=== PATIENT | female | born 1960 ===

== ENCOUNTER 2021-01-14 08:28 | Emergency (ER) | payer OTHER ==
[2021-01-14] MEDS ORDERED: ONDANSETRON ODT4 MG PO (10:43)
[2021-01-14] MEDS ORDERED: PROTONIX 40MG T40 MG PO (10:43)
== END 2021-01-14 11:52 | disposition home or self-care (01) ==
LOC: FER 08:28
DX: U07.1 COVID-19 (principal); K21.9 Gastro-esophageal reflux disease without esophagitis; I10 Essential (primary) hypertension; Z98.890 Other specified postprocedural states
CPT/HCPCS: 99284; J2405; U0002